=== PATIENT | female | born 1950 | race Caucasian/White ===

== ENCOUNTER 2017-09-20 13:56 | Inpatient (IN) ==
[2017-09-20 15:05] LABS: Basophils % 0.6 % (0.0-0.8); Eosinophils # 0.2 10*3/uL (0.0-0.87); Eosinophils % 6.4 % (0.00-10.9); Hematocrit 40.7 VOL% (35.7-47.0); Hemoglobin 13.7 GM/DL (12.0-16.0); Immature Granulocytes % 0.6 %; Immature Granulocytes Absolute 0.02 #; Lymphocytes # 0.5 10*3/uL (1.4-4.0); Mean Corpuscular HGB Conc 33.7 GM/DL (32-36); Mean Corpuscular Hemoglobin 28 PG (27-34); Mean Corpuscular Volume 83.9 FL (87-102); Mean Platelet Volume 11.9 FL (9.6-12.0); Monocytes # 0.2 10*3/uL (0.11-0.8); Monocytes % 5.5 % (1.7-12.7); Neutrophils # 2.4 10*3/uL (1.4-7.4); Neutrophils % 71.9 % (38.7-73.9); Platelet Count 64 T/CUMM (130-400); Red Blood Count 4.85 MC/CUMM (3.8-5.5); Red Cell Distribution Width 14.2 % (9.3-17.3); White Blood Count 3.3 T/CUMM (4-12)
[2017-09-20 15:22] LABS: Albumin 2.9 G/DL (3.4-5.0); Bilirubin,Total 0.5 MG/DL (0.2-1.0); Calcium 8.5 MG/DL (8.5-10.1); Osmolality,Calculated 284.5 MOS/KG (273-304); Potassium 4.1 MMOL/L (3.5-5.1); Total Protein 7.1 G/DL (6.4-8.3)
[2017-09-20] MEDS ORDERED: INSULIN REGULAR 100 UNIT/ML SUBCUT STA (15:33)
[2017-09-20 15:38] LABS: Apearance,Urine CLEAR (Clear); Bilirubin,Urine Negative (Negative); Blood, Urine Negative (Negative); Glucose,Urine (UA) 50 mg/dL (Negative); Ketones,Urine Negative (Negative); Mucus,Urine Few /LPF (Occasional); Nitrite,Urine Negative (Negative); Protein,Urine >=500 MG/DL; RBC,Urine 1 /HPF (0-4); Squamous Epithelial Cell,Urine Occasional /HPF (0-10); Urine Color Yellow (Yellow); Urine Specific Gravity 1.015 (1.001-1.035); Urine Urobilinogen < 2.0 EU/DL (0.2-1.0); WBC,Urine 3 /HPF (0-6)
[2017-09-20 15:48] LABS: Barbiturates Screen,Urine Negative (Negative); Benzodiazepines Screen,Urine Positive (Negative); Cannabinoid Screen,Urine Negative (Negative); Opiate Screen,Urine Positive (Negative); Phencyclidine Screen,Urine Negative (Negative)
[2017-09-20 16:16] LABS: Band Neutrophils 3 % (0-10); Eosinophils 5 % (0-10); Lymphocytes 14 % (20-55); Segmented Neutrophils 74 % (50-85); Total Cells Counted 100
[2017-09-20 16:17] LABS: Anisocytosis 1+; Platelet Estimate Decreased
[2017-09-20 16:41] LABS: INR 1.1; PT Patient Result 11.4 SECS; Partial Thromboplastin Time 25.4 SECS (0-40)
[2017-09-20] MEDS ORDERED: GLUCAGON 1 MG VIAL IM PRN (16:51)
[2017-09-20] MEDS ORDERED: DEXTROSE 50% 25 GM/50 ML VIAL IV PRN (16:51)
[2017-09-20] MEDS ORDERED: INSULIN NPH/REGULAR 70/30 100 UNIT/ML SUBCUT ONE (16:57)
[2017-09-20] MEDS: SODIUM CHLORIDE 0.9% 1,000 ML IV SCH (18:58)
[2017-09-20] MEDS: LACTULOSE 20 GM/30 ML UDCUP PO SCH ×2 (18:58→20:43)
[2017-09-20] MEDS: glyBURIDE 5 MG TABLET PO SCH (19:00)
[2017-09-20] MEDS: ENOXAPARIN 40 MG/0.4 ML SYRINGE SUBCUT SCH (19:01)
[2017-09-20] MEDS: PANTOPRAZOLE 40 MG TABLET PO SCH (19:01)
[2017-09-20] MEDS: amLODIPine 5 MG TABLET PO SCH (19:01)
[2017-09-20] MEDS: INSULIN REGULAR 100 UNIT/ML SUBCUT SCH (20:39)
[2017-09-21] MEDS: LACTULOSE 20 GM/30 ML UDCUP PO SCH ×4 (02:27→20:53)
[2017-09-21] MEDS: SODIUM CHLORIDE 0.9% 1,000 ML IV SCH ×3 (04:38→20:56)
[2017-09-21 04:53] LABS: Basophils % 0.5 % (0.0-0.8); Eosinophils # 0.2 10*3/uL (0.0-0.87); Eosinophils % 4.7 % (0.00-10.9); Hematocrit 33.5 VOL% (35.7-47.0); Hemoglobin 11.5 GM/DL (12.0-16.0); Immature Granulocytes % 0.2 %; Immature Granulocytes Absolute 0.01 #; Lymphocytes # 0.6 10*3/uL (1.4-4.0); Lymphocytes % 13.6 % (21.3-54.2); Mean Corpuscular HGB Conc 34.3 GM/DL (32-36); Mean Corpuscular Hemoglobin 29 PG (27-34); Mean Corpuscular Volume 84.6 FL (87-102); Mean Platelet Volume 11.6 FL (9.6-12.0); Monocytes # 0.3 10*3/uL (0.11-0.8); Monocytes % 6.6 % (1.7-12.7); Neutrophils # 3.2 10*3/uL (1.4-7.4); Neutrophils % 74.4 % (38.7-73.9); Platelet Count 61 T/CUMM (130-400); Red Blood Count 3.96 MC/CUMM (3.8-5.5); Red Cell Distribution Width 14.1 % (9.3-17.3); White Blood Count 4.3 T/CUMM (4-12)
[2017-09-21 05:13] LABS: Giant Platelets Few; Hypochromasia 1+; Ovalocytes Slight; Platelet Estimate Decreased
[2017-09-21 05:32] LABS: Albumin 2.6 G/DL (3.4-5.0); Bilirubin,Total 1.1 MG/DL (0.2-1.0); Calcium 8.1 MG/DL (8.5-10.1); Osmolality,Calculated 286.8 MOS/KG (273-304); Potassium 3.5 MMOL/L (3.5-5.1); Risk Ratio 3.44; Thyroid Stimulating Hormone 2.96 uIU/ml (0.358-3.74); Total Protein 6.4 G/DL (6.4-8.3); VLDL CHOLESTEROL 34.6 MG/DL
[2017-09-21] MEDS: glyBURIDE 5 MG TABLET PO SCH ×2 (08:02→18:34)
[2017-09-21] MEDS: amLODIPine 5 MG TABLET PO SCH (08:02)
[2017-09-21] MEDS: DOCUSATE SODIUM 100 MG CAPSULE PO PRN (08:02)
[2017-09-21] MEDS: PANTOPRAZOLE 40 MG TABLET PO SCH (08:02)
[2017-09-21] MEDS ORDERED: amLODIPine 10 MG TABLET PO SCH (08:37)
[2017-09-21] MEDS ORDERED: LABETALOL 20 MG/4 ML SYRINGE IV ONE (08:38)
[2017-09-21] MEDS ORDERED: POTASSIUM CHLORIDE 20 MEQ TABLET PO ONE (08:38)
[2017-09-21] MEDS: LISINOPRIL 20 MG TABLET PO SCH (09:04)
[2017-09-21] MEDS: INSULIN REGULAR 100 UNIT/ML SUBCUT SCH ×4 (09:32→20:58)
[2017-09-21] MEDS ORDERED: amLODIPine 5 MG TABLET PO ONE (09:59)
[2017-09-21] MEDS: MAGNESIUM OXIDE 400 MG TABLET PO SCH ×2 (15:31→20:53)
[2017-09-21] MEDS: ENOXAPARIN 40 MG/0.4 ML SYRINGE SUBCUT SCH (18:35)
[2017-09-21] MEDS: RIFAXIMIN 550 MG TABLET PO SCH (20:53)
[2017-09-21 22:23] LABS: % Iron Saturation 12.6 % (18-50)
[2017-09-22 00:54] LABS: Hepatitis A Ab IgM Quant 0.14 Index; Hepatitis A Ab IgM Result Negative (Negative); Hepatitis B Core IgM Result Negative (Negative); Hepatitis B Surface Ag Result Negative (Negative); Hepatitis C Virus Ab Quant 0.21 Index; Hepatitis C Virus Ab Result Negative (Negative)
[2017-09-22] MEDS ORDERED: hydrALAZINE 20 MG/1 ML VIAL IV ONE (04:24)
[2017-09-22] MEDS: SODIUM CHLORIDE 0.9% 1,000 ML IV SCH ×2 (04:50→17:36)
[2017-09-22] MEDS: INSULIN REGULAR 100 UNIT/ML SUBCUT SCH ×4 (07:43→21:20)
[2017-09-22] MEDS: amLODIPine 10 MG TABLET PO SCH (09:51)
[2017-09-22] MEDS: MAGNESIUM OXIDE 400 MG TABLET PO SCH ×2 (09:51→21:19)
[2017-09-22] MEDS: LISINOPRIL 20 MG TABLET PO SCH (09:51)
[2017-09-22] MEDS: glyBURIDE 5 MG TABLET PO SCH ×2 (09:51→17:27)
[2017-09-22] MEDS: PANTOPRAZOLE 40 MG TABLET PO SCH (09:52)
[2017-09-22] MEDS: RIFAXIMIN 550 MG TABLET PO SCH ×2 (09:52→21:20)
[2017-09-22] MEDS: LACTULOSE 20 GM/30 ML UDCUP PO SCH ×2 (09:52→21:35)
[2017-09-22] MEDS ORDERED: PROPOFOL 200 MG/20 ML VIAL IV ONE (10:30)
[2017-09-22] MEDS ORDERED: LIDOCAINE 1% 5 ML VIAL ONE (10:30)
[2017-09-22] MEDS ORDERED: IRON SUCROSE 300 MG in SODIUM CHLORIDE 0.9% 100 ML IV ONE (10:42)
[2017-09-22] MEDS ORDERED: LISINOPRIL 20 MG TABLET PO SCH (14:02)
[2017-09-22] MEDS: ENOXAPARIN 40 MG/0.4 ML SYRINGE SUBCUT SCH (17:27)
[2017-09-23] MEDS: SODIUM CHLORIDE 0.9% 1,000 ML IV SCH ×2 (02:11→12:30)
[2017-09-23 05:06] LABS: Basophils % 0.2 % (0.0-0.8); Eosinophils # 0.2 10*3/uL (0.0-0.87); Eosinophils % 5.4 % (0.00-10.9); Hematocrit 31.5 VOL% (35.7-47.0); Hemoglobin 10.8 GM/DL (12.0-16.0); Immature Granulocytes % 0.5 %; Immature Granulocytes Absolute 0.02 #; Lymphocytes # 0.7 10*3/uL (1.4-4.0); Lymphocytes % 14.6 % (21.3-54.2); Mean Corpuscular HGB Conc 34.3 GM/DL (32-36); Mean Corpuscular Hemoglobin 29 PG (27-34); Mean Corpuscular Volume 84.2 FL (87-102); Mean Platelet Volume 11.9 FL (9.6-12.0); Monocytes # 0.4 10*3/uL (0.11-0.8); Monocytes % 7.9 % (1.7-12.7); Neutrophils # 3.2 10*3/uL (1.4-7.4); Neutrophils % 71.4 % (38.7-73.9); Red Blood Count 3.74 MC/CUMM (3.8-5.5); Red Cell Distribution Width 14.5 % (9.3-17.3); White Blood Count 4.4 T/CUMM (4-12)
[2017-09-23 05:09] LABS: Platelet Count 68 T/CUMM (130-400)
[2017-09-23 05:27] LABS: Calcium 7.9 MG/DL (8.5-10.1); Hypochromasia 1+; Osmolality,Calculated 281.1 MOS/KG (273-304); Ovalocytes Slight; Platelet Estimate Decreased; Potassium 3.4 MMOL/L (3.5-5.1)
[2017-09-23] MEDS: INSULIN REGULAR 100 UNIT/ML SUBCUT SCH ×2 (08:03→12:30)
[2017-09-23] MEDS: amLODIPine 10 MG TABLET PO SCH (09:27)
[2017-09-23] MEDS: PANTOPRAZOLE 40 MG TABLET PO SCH (09:27)
[2017-09-23] MEDS: RIFAXIMIN 550 MG TABLET PO SCH (09:28)
[2017-09-23] MEDS: DOCUSATE SODIUM 100 MG CAPSULE PO PRN (09:28)
[2017-09-23] MEDS: MAGNESIUM OXIDE 400 MG TABLET PO SCH (09:28)
[2017-09-23] MEDS: LACTULOSE 20 GM/30 ML UDCUP PO SCH (09:28)
[2017-09-23] MEDS: glyBURIDE 5 MG TABLET PO SCH (09:28)
[2017-09-23 11:29] VITALS: BP 168/98
== END 2017-09-23 14:10 | disposition home or self-care (01) | DRG 442 ==
LOC: EDBD → N.ED 13:56 → N.EDINP 13:56 → INTOOBSV 16:23 → OBSVTOIN 16:50 → N.EDINP 17:47 → N.4E 18:12
PROVIDERS: ADMIT Hospitalist; ATTEND Hospitalist

== ENCOUNTER 2018-07-21 15:53 | Inpatient (IN) ==
[2018-07-21] MEDS ORDERED: CEFTAROLINE 600 MG in SODIUM CHLORIDE 0.9% 100 ML IV STA (16:33)
[2018-07-21 17:46] LABS: Basophils % 0.2 % (0.0-0.8); Eosinophils # 0.2 10*3/uL (0.0-0.87); Eosinophils % 3.7 % (0.00-10.9); Hematocrit 24.6 VOL% (35.7-47.0); Hemoglobin 7.7 GM/DL (12.0-16.0); Immature Granulocytes % 0.5 %; Immature Granulocytes Absolute 0.02 #; Lymphocytes # 0.4 10*3/uL (1.4-4.0); Lymphocytes % 10.6 % (21.3-54.2); Mean Corpuscular HGB Conc 31.3 GM/DL (32-36); Mean Corpuscular Hemoglobin 26 PG (27-34); Mean Corpuscular Volume 84.2 FL (87-102); Mean Platelet Volume 10.4 FL (9.6-12.0); Monocytes # 0.4 10*3/uL (0.11-0.8); Monocytes % 9.1 % (1.7-12.7); Neutrophils # 3.1 10*3/uL (1.4-7.4); Neutrophils % 75.9 % (38.7-73.9); Platelet Count 160 T/CUMM (130-400); Red Blood Count 2.92 MC/CUMM (3.8-5.5); Red Cell Distribution Width 15.6 % (9.3-17.3); White Blood Count 4.1 T/CUMM (4-12)
[2018-07-21 18:00] LABS: Alanine Aminotransferase 45 U/L (13-56); Albumin 1.4 G/DL (3.4-5.0); Alkaline Phosphatase 270 U/L (45-117); Amylase 44 U/L (25-115); Aspartate Amino Transferase 81 U/L (0-37); Bilirubin,Total < 0.39 MG/DL (0.2-1.0); Blood Urea Nitrogen 17 MG/DL (7-18); Calcium 7.6 MG/DL (8.5-10.1); Glucose 117 MG/DL (74-106); Osmolality,Calculated 272.1 MOS/KG (273-304); Potassium 3.3 MMOL/L (3.5-5.1); Sodium 135 MMOL/L (136-145); Total Protein 7.1 G/DL (6.4-8.3)
[2018-07-21 19:02] LABS: Apearance,Urine CLEAR (Clear); Bilirubin,Urine Negative (Negative); Blood, Urine Negative (Negative); Glucose,Urine (UA) Negative (Negative); Hyaline Casts,Urine 3 /LPF (0-3); Ketones,Urine Negative (Negative); Mucus,Urine Occasional /LPF (Occasional); Nitrite,Urine Negative (Negative); Protein,Urine 30 MG/DL; RBC,Urine <1 /HPF (0-4); Urine Color Yellow (Yellow); Urine Specific Gravity 1.011 (1.001-1.035); Urine Urobilinogen < 2.0 EU/DL (0.2-1.0)
[2018-07-21] MEDS ORDERED: ONDANSETRON 4 MG/2 ML VIAL IV PRN (19:15)
[2018-07-21] MEDS ORDERED: POTASSIUM CHLORIDE RIDER 20 MEQ in PREMIX 1 EACH IV PRN (19:43)
[2018-07-21] MEDS ORDERED: LACTULOSE 20 GM/30 ML UDCUP PO SCH (21:00)
[2018-07-21] MEDS: FUROSEMIDE 40 MG/4 ML VIAL IV SCH (21:27)
[2018-07-21] MEDS: MAGNESIUM CHLORIDE 64 MG TABLET PO SCH (21:27)
[2018-07-21] MEDS: RIFAXIMIN 550 MG TABLET PO SCH (21:27)
[2018-07-21] MEDS: POTASSIUM CHLORIDE 20 MEQ TABLET PO PRN (23:59)
[2018-07-22] MEDS: POTASSIUM CHLORIDE 20 MEQ TABLET PO PRN ×2 (02:16→03:39)
[2018-07-22 04:27] LABS: Basophils % 0.3 % (0.0-0.8); Eosinophils # 0.1 10*3/uL (0.0-0.87); Hematocrit 21.2 VOL% (35.7-47.0); Hemoglobin 6.6 GM/DL (12.0-16.0); Immature Granulocytes % 0.9 %; Immature Granulocytes Absolute 0.03 #; Lymphocytes # 0.5 10*3/uL (1.4-4.0); Lymphocytes % 15.2 % (21.3-54.2); Mean Corpuscular HGB Conc 31.1 GM/DL (32-36); Mean Corpuscular Hemoglobin 26 PG (27-34); Mean Corpuscular Volume 83.5 FL (87-102); Mean Platelet Volume 10.2 FL (9.6-12.0); Monocytes # 0.4 10*3/uL (0.11-0.8); Monocytes % 12.1 % (1.7-12.7); Neutrophils # 2.4 10*3/uL (1.4-7.4); Neutrophils % 67.5 % (38.7-73.9); Platelet Count 130 T/CUMM (130-400); Red Blood Count 2.54 MC/CUMM (3.8-5.5); Red Cell Distribution Width 15.7 % (9.3-17.3); White Blood Count 3.5 T/CUMM (4-12)
[2018-07-22 04:29] LABS: Basophils % 0.6 % (0.0-0.8); Eosinophils # 0.1 10*3/uL (0.0-0.87); Eosinophils % 3.9 % (0.00-10.9); Hematocrit 21.5 VOL% (35.7-47.0); Hemoglobin 6.6 GM/DL (12.0-16.0); Immature Granulocytes % 0.9 %; Immature Granulocytes Absolute 0.03 #; Lymphocytes # 0.5 10*3/uL (1.4-4.0); Lymphocytes % 14.4 % (21.3-54.2); Mean Corpuscular HGB Conc 30.7 GM/DL (32-36); Mean Corpuscular Hemoglobin 26 PG (27-34); Mean Corpuscular Volume 83.3 FL (87-102); Mean Platelet Volume 10.6 FL (9.6-12.0); Monocytes # 0.3 10*3/uL (0.11-0.8); Monocytes % 9.9 % (1.7-12.7); Neutrophils # 2.4 10*3/uL (1.4-7.4); Neutrophils % 70.3 % (38.7-73.9); Platelet Count 142 T/CUMM (130-400); Red Blood Count 2.58 MC/CUMM (3.8-5.5); Red Cell Distribution Width 15.4 % (9.3-17.3); White Blood Count 3.3 T/CUMM (4-12)
[2018-07-22 04:35] LABS: INR 1.2; PT Patient Result 12.6 SECS
[2018-07-22 05:02] LABS: Calcium 7.5 MG/DL (8.5-10.1); Osmolality,Calculated 272.8 MOS/KG (273-304); Potassium 3.3 MMOL/L (3.5-5.1)
[2018-07-22 05:05] LABS: Ferritin 231.4 ng/ml (8-252)
[2018-07-22 05:15] LABS: Folate 8.3 NG/ML (5.4-24.0); Vitamin B12 524 PG/ML (211-911)
[2018-07-22] MEDS ORDERED: ALBUMIN 5% 25 GM in PREMIX 1 EACH IV ONE (07:00)
[2018-07-22] MEDS ORDERED: FUROSEMIDE 20 MG/2 ML VIAL IV PRN (07:30)
[2018-07-22] MEDS ORDERED: SODIUM CHLORIDE 0.9% 1,000 ML IV PRN (07:30)
[2018-07-22] MEDS ORDERED: ALBUTEROL/IPRATROPIUM 3 ML NEB RESP TX ONE (08:00)
[2018-07-22] MEDS ORDERED: GLUCAGON 1 MG VIAL IM PRN (08:42)
[2018-07-22] MEDS ORDERED: DEXTROSE 50% 25 GM/50 ML VIAL IV PRN (08:42)
[2018-07-22 09:31] LABS: Hemoglobin A1 (Alkaline) 98.3 % (96.5-98.5); Hemoglobin A2 (Alkaline) 1.7 % (1.5-3.5)
[2018-07-22] MEDS: SPIRONOLACTONE 50 MG TABLET PO SCH (09:56)
[2018-07-22] MEDS: MAGNESIUM CHLORIDE 64 MG TABLET PO SCH ×2 (09:56→20:18)
[2018-07-22] MEDS: RIFAXIMIN 550 MG TABLET PO SCH ×2 (09:56→20:18)
[2018-07-22] MEDS: LACTULOSE 20 GM/30 ML UDCUP PO SCH ×2 (09:56→20:18)
[2018-07-22] MEDS: PANTOPRAZOLE 40 MG TABLET PO SCH (09:56)
[2018-07-22] MEDS: amLODIPine 10 MG TABLET PO SCH (09:56)
[2018-07-22 11:44] LABS: Sedimentation Rate-Westergren 135 MM/HR (0-30)
[2018-07-22] MEDS: FUROSEMIDE 40 MG/4 ML VIAL IV SCH ×2 (12:30→21:39)
[2018-07-22] MEDS: SILVER SULFADIAZINE 1% CREAM 25 GM TUBE TOP SCH (14:25)
[2018-07-22] MEDS ORDERED: FUROSEMIDE 20 MG/2 ML VIAL IV ONE (14:34)
[2018-07-22] MEDS: cefTRIAXone 2,000 MG in SYRINGE 1 EACH IV SCH (14:46)
[2018-07-22] MEDS ORDERED: ALBUMIN 25% 12.5 GM/50 ML VIAL IV ONE (15:36)
[2018-07-22] MEDS: ALBUMIN 25% 50 GM in PREMIX 1 EACH IV ONE ×2 (15:40→23:41)
[2018-07-22] MEDS ORDERED: ALBUMIN 25% 12.5 GM in PREMIX 1 EACH IV ONE (15:59)
[2018-07-22 23:45] LABS: Neutrophils,Peritoneal Fluid 13 %
[2018-07-23 05:00] LABS: Basophils % 0.5 % (0.0-0.8); Eosinophils # 0.2 10*3/uL (0.0-0.87); Eosinophils % 4.6 % (0.00-10.9); Hematocrit 26.3 VOL% (35.7-47.0); Immature Granulocytes % 0.7 %; Immature Granulocytes Absolute 0.03 #; Lymphocytes # 0.6 10*3/uL (1.4-4.0); Lymphocytes % 13.4 % (21.3-54.2); Mean Corpuscular HGB Conc 31.6 GM/DL (32-36); Mean Corpuscular Hemoglobin 26 PG (27-34); Mean Corpuscular Volume 83.5 FL (87-102); Mean Platelet Volume 9.9 FL (9.6-12.0); Monocytes # 0.4 10*3/uL (0.11-0.8); Neutrophils # 2.9 10*3/uL (1.4-7.4); Neutrophils % 70.8 % (38.7-73.9); Platelet Count 144 T/CUMM (130-400); Red Blood Count 3.15 MC/CUMM (3.8-5.5); Red Cell Distribution Width 15.1 % (9.3-17.3); White Blood Count 4.1 T/CUMM (4-12)
[2018-07-23 05:12] LABS: Hemoglobin 8.3 GM/DL (12.0-16.0)
[2018-07-23 05:33] LABS: Calcium 7.8 MG/DL (8.5-10.1); Potassium 3.4 MMOL/L (3.5-5.1)
[2018-07-23 07:35] LABS: RBC,Peritoneal Fluid 6054 T/CUMM
[2018-07-23] MEDS: CHOLECALCIFEROL 1,000 UNIT TABLET PO SCH (08:54)
[2018-07-23] MEDS: amLODIPine 10 MG TABLET PO SCH (08:54)
[2018-07-23] MEDS: RIFAXIMIN 550 MG TABLET PO SCH ×2 (08:54→21:14)
[2018-07-23] MEDS: SPIRONOLACTONE 50 MG TABLET PO SCH (08:55)
[2018-07-23] MEDS: MAGNESIUM CHLORIDE 64 MG TABLET PO SCH ×2 (08:55→21:14)
[2018-07-23] MEDS: PANTOPRAZOLE 40 MG TABLET PO SCH (08:55)
[2018-07-23] MEDS: FUROSEMIDE 40 MG/4 ML VIAL IV SCH ×2 (08:56→22:32)
[2018-07-23] MEDS: LACTULOSE 20 GM/30 ML UDCUP PO SCH ×2 (08:56→21:14)
[2018-07-23] MEDS: cefTRIAXone 2,000 MG in SYRINGE 1 EACH IV SCH (08:58)
[2018-07-23] MEDS: SILVER SULFADIAZINE 1% CREAM 25 GM TUBE TOP SCH ×2 (09:04→12:27)
[2018-07-23] MEDS: POTASSIUM CHLORIDE 20 MEQ TABLET PO PRN ×3 (10:48→14:14)
[2018-07-24 06:05] LABS: Basophils % 0.9 % (0.0-0.8); Eosinophils # 0.2 10*3/uL (0.0-0.87); Eosinophils % 4.6 % (0.00-10.9); Hematocrit 27.8 VOL% (35.7-47.0); Hemoglobin 8.7 GM/DL (12.0-16.0); Immature Granulocytes % 0.6 %; Immature Granulocytes Absolute 0.02 #; Lymphocytes # 0.4 10*3/uL (1.4-4.0); Lymphocytes % 12.1 % (21.3-54.2); Mean Corpuscular HGB Conc 31.3 GM/DL (32-36); Mean Corpuscular Hemoglobin 26 PG (27-34); Mean Corpuscular Volume 83.7 FL (87-102); Mean Platelet Volume 10.2 FL (9.6-12.0); Monocytes # 0.3 10*3/uL (0.11-0.8); Monocytes % 10.2 % (1.7-12.7); Neutrophils # 2.3 10*3/uL (1.4-7.4); Neutrophils % 71.6 % (38.7-73.9); Platelet Count 139 T/CUMM (130-400); Red Blood Count 3.32 MC/CUMM (3.8-5.5); White Blood Count 3.2 T/CUMM (4-12)
[2018-07-24 06:16] LABS: Calcium 7.8 MG/DL (8.5-10.1); Potassium 3.7 MMOL/L (3.5-5.1)
[2018-07-24] MEDS: LACTULOSE 20 GM/30 ML UDCUP PO SCH ×2 (09:54→21:21)
[2018-07-24] MEDS: FUROSEMIDE 40 MG/4 ML VIAL IV SCH ×2 (09:54→22:47)
[2018-07-24] MEDS: cefTRIAXone 2,000 MG in SYRINGE 1 EACH IV SCH (09:55)
[2018-07-24] MEDS: CHOLECALCIFEROL 1,000 UNIT TABLET PO SCH (09:56)
[2018-07-24] MEDS: MAGNESIUM CHLORIDE 64 MG TABLET PO SCH ×2 (09:56→21:21)
[2018-07-24] MEDS: BISACODYL 5 MG TABLET PO SCH ×2 (09:56→16:46)
[2018-07-24] MEDS: RIFAXIMIN 550 MG TABLET PO SCH ×2 (09:56→21:21)
[2018-07-24] MEDS: amLODIPine 10 MG TABLET PO SCH (09:56)
[2018-07-24] MEDS: SPIRONOLACTONE 100 MG TABLET PO SCH (09:56)
[2018-07-24] MEDS: SILVER SULFADIAZINE 1% CREAM 25 GM TUBE TOP SCH (09:57)
[2018-07-24] MEDS: PANTOPRAZOLE 40 MG TABLET PO SCH (09:57)
[2018-07-24] MEDS ORDERED: POLYETHYLENE GLYCOL POWDER 255 GM BOTTLE PO ONE (18:00)
[2018-07-24] MEDS ORDERED: MAGNESIUM CITRATE 300 ML BOTTLE PO ONE (21:00)
[2018-07-25] MEDS: BISACODYL 5 MG TABLET PO SCH (01:21)
[2018-07-25 05:04] LABS: Basophils % 0.5 % (0.0-0.8); Eosinophils # 0.3 10*3/uL (0.0-0.87); Eosinophils % 6.5 % (0.00-10.9); Hematocrit 29.3 VOL% (35.7-47.0); Hemoglobin 9.1 GM/DL (12.0-16.0); Immature Granulocytes % 0.2 %; Immature Granulocytes Absolute 0.01 #; Lymphocytes # 0.6 10*3/uL (1.4-4.0); Lymphocytes % 13.8 % (21.3-54.2); Mean Corpuscular HGB Conc 31.1 GM/DL (32-36); Mean Corpuscular Hemoglobin 26 PG (27-34); Mean Corpuscular Volume 84.2 FL (87-102); Mean Platelet Volume 10.8 FL (9.6-12.0); Monocytes # 0.4 10*3/uL (0.11-0.8); Monocytes % 10.1 % (1.7-12.7); Neutrophils # 2.9 10*3/uL (1.4-7.4); Neutrophils % 68.9 % (38.7-73.9); Platelet Count 174 T/CUMM (130-400); Red Blood Count 3.48 MC/CUMM (3.8-5.5); Red Cell Distribution Width 15.1 % (9.3-17.3); White Blood Count 4.1 T/CUMM (4-12)
[2018-07-25 05:22] LABS: Osmolality,Calculated 272.8 MOS/KG (273-304); Potassium 3.4 MMOL/L (3.5-5.1)
[2018-07-25] MEDS: FUROSEMIDE 40 MG/4 ML VIAL IV SCH (08:51)
[2018-07-25] MEDS: cefTRIAXone 2,000 MG in SYRINGE 1 EACH IV SCH (09:56)
[2018-07-25] MEDS ORDERED: PROPOFOL 200 MG/20 ML VIAL IV ONE (10:00)
[2018-07-25] MEDS ORDERED: LIDOCAINE 2% 5 ML VIAL ONE (10:00)
[2018-07-25] MEDS: RIFAXIMIN 550 MG TABLET PO SCH ×2 (10:25→21:54)
[2018-07-25] MEDS: MAGNESIUM CHLORIDE 64 MG TABLET PO SCH ×2 (10:25→21:54)
[2018-07-25] MEDS: SPIRONOLACTONE 100 MG TABLET PO SCH (10:25)
[2018-07-25] MEDS: CHOLECALCIFEROL 1,000 UNIT TABLET PO SCH (10:25)
[2018-07-25] MEDS: amLODIPine 10 MG TABLET PO SCH (10:26)
[2018-07-25] MEDS: PANTOPRAZOLE 40 MG TABLET PO SCH (10:26)
[2018-07-25] MEDS: SILVER SULFADIAZINE 1% CREAM 25 GM TUBE TOP SCH (10:26)
[2018-07-25] MEDS: LACTULOSE 20 GM/30 ML UDCUP PO SCH ×2 (10:26→21:54)
[2018-07-25] MEDS ORDERED: SPIRONOLACTONE 50 MG TABLET PO SCH (11:37)
[2018-07-26 05:17] LABS: Basophils % 0.3 % (0.0-0.8); Eosinophils # 0.2 10*3/uL (0.0-0.87); Eosinophils % 4.5 % (0.00-10.9); Hematocrit 27.5 VOL% (35.7-47.0); Hemoglobin 8.4 GM/DL (12.0-16.0); Immature Granulocytes % 0.6 %; Immature Granulocytes Absolute 0.02 #; Lymphocytes # 0.5 10*3/uL (1.4-4.0); Lymphocytes % 14.3 % (21.3-54.2); Mean Corpuscular HGB Conc 30.5 GM/DL (32-36); Mean Corpuscular Hemoglobin 26 PG (27-34); Mean Corpuscular Volume 84.4 FL (87-102); Mean Platelet Volume 10.9 FL (9.6-12.0); Monocytes # 0.5 10*3/uL (0.11-0.8); Monocytes % 12.9 % (1.7-12.7); Neutrophils # 2.4 10*3/uL (1.4-7.4); Neutrophils % 67.4 % (38.7-73.9); Platelet Count 138 T/CUMM (130-400); Red Blood Count 3.26 MC/CUMM (3.8-5.5); Red Cell Distribution Width 15.2 % (9.3-17.3); White Blood Count 3.6 T/CUMM (4-12)
[2018-07-26 05:44] LABS: Calcium 7.5 MG/DL (8.5-10.1); Osmolality,Calculated 276.7 MOS/KG (273-304); Potassium 3.6 MMOL/L (3.5-5.1)
[2018-07-26] MEDS ORDERED: FUROSEMIDE 40 MG TABLET PO SCH (08:00)
[2018-07-26] MEDS: LACTULOSE 20 GM/30 ML UDCUP PO SCH (08:32)
[2018-07-26] MEDS: RIFAXIMIN 550 MG TABLET PO SCH (08:33)
[2018-07-26] MEDS: PANTOPRAZOLE 40 MG TABLET PO SCH (08:33)
[2018-07-26] MEDS: CHOLECALCIFEROL 1,000 UNIT TABLET PO SCH (08:33)
[2018-07-26] MEDS: amLODIPine 10 MG TABLET PO SCH (08:33)
[2018-07-26] MEDS: MAGNESIUM CHLORIDE 64 MG TABLET PO SCH (08:33)
[2018-07-26] MEDS: cefTRIAXone 2,000 MG in SYRINGE 1 EACH IV SCH (08:37)
[2018-07-26] MEDS: SILVER SULFADIAZINE 1% CREAM 25 GM TUBE TOP SCH (08:37)
[2018-07-26] MEDS ORDERED: SPIRONOLACTONE 100 MG TABLET PO SCH (09:23)
[2018-07-26 11:39] VITALS: BP 133/67
[2018-07-26] MEDS ORDERED: MAGNESIUM CHLORIDE 64 MG TABLET PO SCH (15:00)
== END 2018-07-26 15:49 | disposition home or self-care (01) | DRG 433 ==
LOC: EDUNIT# → EDBD → N.EDINP 15:53 → N.ED 15:53 → N.2E 20:27
PROVIDERS: ADMIT Hospitalist; ATTEND Hospitalist